=== PATIENT | female | born 2005 | race Caucasian/White ===

== ENCOUNTER 2024-06-11 05:04 | Emergency (ER) | payer SELFPAY ==
[2024-06-11 05:10] VITALS: BP 152/92; PULSE 106; RESP 18; TEMP 37.1; O2SAT 98; BMI 38.9
--- NOTE | 2024-06-11 05:19 | ED_ITS ---
Documented by User: Gris Lozano MD 06/11/24 05:32 HPI - Female Genitourinary 2 General: Chief complaint: Urogenital-Female Stated complaint: can not pee Time Seen by Provider: 06/11/24 05:14 History of Present Illness: 19-year-old female who presents emergenc y room with inability urinate. She says she awoke in the middle of the night needing to urinate and tried to urinate and could not. She said she tried to go back to sleep and woke up again later and now feels like she has been on a long road trip and needs to urinate very badly but cannot. She is having some suprapubic tenderness. No fevers. She had not had any dysuria prior to this. No nausea or vomiting. No fevers. Date of Last Menstrual Period: 05/28/24 Related Data Previous Rx's Medication Instructions Recorded cephalexin 500 mg capsule 500 mg PO TID 7 days #21 caps 06/11/24 Allergies Allergy/AdvReac Type Severity Reaction Status Date / Time No Known Allergies Allergy Verified 06/11/24 05:12 Review of Systems 2 Narrative: Constitutional symptoms: Negative except as documented in HPI. Skin symptoms: Negative except as documented in HPI. Eye symptoms: Negative except as documented in HPI. ENMT symptoms: Negative except as documented in HPI. Respiratory symptoms: Negative except as documented in HPI. Cardiovascular symptoms: Negative except as documented in HPI. Gastrointestinal symptoms: Negative except as documented in HPI. Genitourinary symptoms: Negative except as documented in HPI. Musculoskeletal symptoms: Negative except as documented in HPI. Neurologic symptoms: Negative except as documented in HPI. Psychiatric symptoms: Negative except as documented in HPI. Endocrine symptoms: Negative except as documented in HPI. [facility] ED 2 Female Reproductive History: Date of last menstrual period: 05/28/24 Physical Exam 2 Narrative: EXAM NARRATIVE: General: Alert, no acute distress. Skin: Warm, dry. Head: Normocephalic, atraumatic. Neck: Supple, trachea midline. Eye: Extraocular movements are intact. Ears, nose, mouth and throat: mucosa moist. Cardiovascular: Regular, Normal peripheral perfusion. Respiratory: Lungs are clear to auscultation, respirations are non-labored, breath sounds are equal, Symmetrical chest wall expansion. Gastrointestinal: Soft, some suprapubic tenderness, Non distended Musculoskeletal: Normal ROM, no deformity. Neurological: Alert and oriented, No focal neurological deficit observed. Psychiatric: Cooperative, appropriate mood & affect. Course 2 Vital Signs: Vital signs: Vital Signs Temperature 98.8 F 06/11/24 05:10 Pulse Rate 106 H 06/11/24 05:10 Respiratory Rate 18 06/11/24 05:10 Blood Pressure 152/92 06/11/24 05:10 Pulse Oximetry 98 06/11/24 05:10 Oxygen Delivery Me thod Room Air 06/11/24 05:10 MDM - Female Medical Decision Making Medical decision making: Differential diagnosis for patient with urinary retention including but not limited to and based on the above HPI, review of systems and physical exam:-: Urinary retention. Urinary tract infection. concerns for systemic infection, renal dysfunction Patient did finally urinate. She had a small amount of urine. Bladder scan only showed about 100 cc as well. This is being sent for urinalysis. Basic lab work was sent. Patient care transitioned to Dr. Blair at shift change Lab Data 06/11/24 05:37 06/11/24 05:37 Laboratory Results WBC 13.77 10^3/uL (3.29-11.43) H 06/11/24 05:37 RBC 4.63 10^6/uL (3.85-5.65) 06/11/24 05:37 Hgb 13.10 g/dL (11.27-16.99) 06/11/24 05:37 Hct 39.6 % (36-47) 06/11/24 05:37 MCV 85.5 fl (85-98) 06/11/24 05:37 MCH 28.3 pg (27-33) 06/11/24 05:37 MCHC 33.1 g/dL (30-55) 06/11/24 05:37 RDW 12.8 % (12.1-15.1) 06/11/24 05:37 Plt Count 258 10^3/cmm (157-399) 06/11/24 05:37 MPV 11.3 fL (7.4-10.4) H 06/11/24 05:37 Neut % (Auto) 74.4 % 06/11/24 05:37 Lymph % (Auto) 19.0 % 06/11/24 05:37 Andrew % (Auto) 5.4 % 06/11/24 05:37 Eos % (Auto) 0.6 % 06/11/24 05:37 Baso % (Auto) 0.2 % 06/11/24 05:37 Neut # (Auto) 10.25 10^3/uL (1.8-7.7) H 06/11/24 05:37 Lymph # (Auto) 2.6 10^3/uL (0.8-4.8) 06/11/24 05:37 Andrew # (Auto) 0.7 10^3/uL (0.2-0.9) 06/11/24 05:37 Eos # (Auto) 0.1 10^3/uL (0.0-0.8) 06/11/24 05:37 Baso # (Auto) 0.0 10^3/uL (0.0-0.1) 06/11/24 05:37 Nucleated RBC % (auto) 0 % 06/11/24 05:37 Nucleated RBCs # 0.0 /100WBC 06/11/24 05:37 Sodium 137 mmol/L (136-145) 06/11/24 05:37 Potassium 4.2 mmol/L (3.5-5.1) 06/11/24 05:37 Chloride 103 mmol/L (98-107) 06/11/24 05:37 Carbon Dioxide 20 mmol/L (22-29) L 06/11/24 05:37 Anion Gap 18.2 (5-19) 06/11/24 05:37 BUN 16 mg/dL (6-20) 06/11/24 05:37 Creatinine 0.9 mg/dL (0.5-0.9) 06/11/24 05:37 GFR Calculation 79.0 mL/min (90-130) L 06/11/24 05:37 Glucose 113 mg/dL (65-115) 06/11/24 05:37 Calculated Osmolality 286 mOsm/kg (285-295) 06/11/24 05:37 Calcium 8.8 mg/dL (8.5-10.5) 06/11/24 05:37 Urine Color [place] (Yellow) A 06/11/24 05:27 Urine Appearance Turbid (CLEAR) A 06/11/24 05:27 Urine pH 5.0 (5-7) 06/11/24 05:27 Ur Specific [place] 1.016 (1.005-1.030) 06/11/24 05:27 Urine Protein 2+ (Negative) A 06/11/24 05:27 Urine Glucose (UA) Negative (Normal) 06/11/24 05:27 Urine Ketones Negative (Negative) 06/11/24 05:27 Urine Blood 3+ (Negative) A 06/11/24 05:27 Urine Nitrate Positive (Negative) A 06/11/24 05:27 Urine Bilirubin Negative (Negative) 06/11/24 05:27 Urine Urobilinogen 1.0 mg/dL (Negative) 06/11/24 05:27 Ur Leukocyte Esterase 3+ (Negative) A 06/11/24 05:27 Urine RBC >100 /hpf (0-2) H 06/11/24 05:27 Urine WBC >100 /hpf (0-5) H 06/11/24 05:27 Ur Squamous Epith Cells 0-5 /hpf (0-5) 06/11/24 05:27 Amorphous Sediment Not Reportable 06/11/24 05:27 Urine Bacteria Trace /hpf (NONE) 06/11/24 05:27 Hyaline Casts 0-4 /lpf H 06/11/24 05:27 Discharge Plan Discharge Patient Disposition: Home Clinical Impression: Urinary tract infection Condition: Stable Prescriptions: New cephalexin 500 mg capsule 500 mg PO TID 7 Days Qty: 21 0RF Discharge Orders: Discharge ED (Routine); Ordered 06/11/24 Ordered By: Ashly Blair Referrals: Kaylee Cooper MD [Family Provider] - 4-7 days Discharge Diet: Advance as tolerated Discharge Activity: Resume usual activity Patient Instructions: Urinary Tract Infection in Women (ED) Coding Level of Care Code ED Catalog Library Assistant for Chg Fwd Documented by User: Ashly Blair MD 06/11/24 06:14 HPI - Female Genitourinary 2 General: Chief complaint: Urogenital-Female Stated complaint: can not pee Time Seen by Provider: 06/11/24 05:14 Related Data Previous Rx's Medication Instructions Recorded cephalexin 500 mg capsule 500 mg PO TID 7 days #21 caps 06/11/24 Allergies Allergy/AdvReac Type Severity Reaction Status Date / Time No Known Allergies Allergy Verified 06/11/24 05:12 Course 2 Vital Signs: Vital signs: Vital Signs Temperature 98.8 F 06/11/24 05:10 Pulse Rate 106 H 06/11/24 05:10 Respiratory Rate 18 06/11/24 05:10 Blood Pressure 152/92 06/11/24 05:10 Pulse Oximetry 98 06/11/24 05:10 Oxygen Delivery Me thod Room Air 06/11/24 05:10 MDM - Female Medical Decision Making Medical decision making: Differential diagnosis for patient with urinary retention including but not limited to and based on the above HPI, review of systems and physical exam:-: Urinary retention. Urinary tract infection. concerns for systemic infection, renal dysfunction Patient did finally urinate. She had a small amount of urine. Bladder scan only showed about 100 cc as well. This is being sent for urinalysis. Basic lab work was sent. Patient care transitioned to Dr. Blair at shift change Patient presents here with UTI we will prescribe her antibiotic she is stable for discharge follow-up PCP return if worsening. Lab Data 06/11/24 05:37 06/11/24 05:37 Laboratory Results WBC 13.77 10^3/uL (3.29-11.43) H 06/11/24 05:37 RBC 4.63 10^6/uL (3.85-5.65) 06/11/24 05:37 Hgb 13.10 g/dL (11.27-16.99) 06/11/24 05:37 Hct 39.6 % (36-47) 06/11/24 05:37 MCV 85.5 fl (85-98) 06/11/24 05:37 MCH 28.3 pg (27-33) 06/11/24 05:37 MCHC 33.1 g/dL (30-55) 06/11/24 05:37 RDW 12.8 % (12.1-15.1) 06/11/24 05:37 Plt Count 258 10^3/cmm (157-399) 06/11/24 05:37 MPV 11.3 fL (7.4-10.4) H 06/11/24 05:37 Neut % (Auto) 74.4 % 06/11/24 05:37 Lymph % (Auto) 19.0 % 06/11/24 05:37 Andrew % (Auto) 5.4 % 06/11/24 05:37 Eos % (Auto) 0.6 % 06/11/24 05:37 Baso % (Auto) 0.2 % 06/11/24 05:37 Neut # (Auto) 10.25 10^3/uL (1.8-7.7) H 06/11/24 05:37 Lymph # (Auto) 2.6 10^3/uL (0.8-4.8) 06/11/24 05:37 Andrew # (Auto) 0.7 10^3/uL (0.2-0.9) 06/11/24 05:37 Eos # (Auto) 0.1 10^3/uL (0.0-0.8) 06/11/24 05:37 Baso # (Auto) 0.0 10^3/uL (0.0-0.1) 06/11/24 05:37 Nucleated RBC % (auto) 0 % 06/11/24 05:37 Nucleated RBCs # 0.0 /100WBC 06/11/24 05:37 Sodium 137 mmol/L (136-145) 06/11/24 05:37 Potassium 4.2 mmol/L (3.5-5.1) 06/11/24 05:37 Chloride 103 mmol/L (98-107) 06/11/24 05:37 Carbon Dioxide 20 mmol/L (22-29) L 06/11/24 05:37 Anion Gap 18.2 (5-19) 06/11/24 05:37 BUN 16 mg/dL (6-20) 06/11/24 05:37 Creatinine 0.9 mg/dL (0.5-0.9) 06/11/24 05:37 GFR Calculation 79.0 mL/min (90-130) L 06/11/24 05:37 Glucose 113 mg/dL (65-115) 06/11/24 05:37 Calculated Osmolality 286 mOsm/kg (285-295) 06/11/24 05:37 Calcium 8.8 mg/dL (8.5-10.5) 06/11/24 05:37 Urine Color [place] (Yellow) A 06/11/24 05:27 Urine Appearance Turbid (CLEAR) A 06/11/24 05:27 Urine pH 5.0 (5-7) 06/11/24 05:27 Ur Specific [place] 1.016 (1.005-1.030) 06/11/24 05:27 Urine Protein 2+ (Negative) A 06/11/24 05:27 Urine Glucose (UA) Negative (Normal) 06/11/24 05:27 Urine Ketones Negative (Negative) 06/11/24 05:27 Urine Blood 3+ (Negative) A 06/11/24 05:27 Urine Nitrate Positive (Negative) A 06/11/24 05:27 Urine Bilirubin Negative (Negative) 06/11/24 05:27 Urine Urobilinogen 1.0 mg/dL (Negative) 06/11/24 05:27 Ur Leukocyte Esterase 3+ (Negative) A 06/11/24 05:27 Urine RBC >100 /hpf (0-2) H 06/11/24 05:27 Urine WBC >100 /hpf (0-5) H 06/11/24 05:27 Ur Squamous Epith Cells 0-5 /hpf (0-5) 06/11/24 05:27 Amorphous Sediment Not Reportable 06/11/24 05:27 Urine Bacteria Trace /hpf (NONE) 06/11/24 05:27 Hyaline Casts 0-4 /lpf H 06/11/24 05:27 No radiology studies performed this visit Discharge Plan Discharge Patient Disposition: Home Clinical Impression: Urinary tract infection Condition: Stable Prescriptions: New cephalexin 500 mg capsule 500 mg PO TID 7 Days Qty: 21 0RF Discharge Orders: Discharge ED (Routine); Ordered 06/11/24 Ordered By: Ashly Blair Referrals: Kaylee Cooper MD [Family Provider] - 4-7 days Discharge Diet: Advance as tolerated Discharge Activity: Resume usual activity Patient Instructions: Urinary Tract Infection in Women (ED) Coding Level of Care Code ED Catalog Library Assistant for Angelia Nelson
[2024-06-11 05:34] LABS: Bilirubin Urine Negative (Negative); Blood Urine 3+ (Negative); Glucose Urine UA Negative (Normal); Ketones Urine Negative (Negative); Leukocyte Esterase Urine 3+ (Negative); Nitrate Urine Positive (Negative); Protein Urine 2+ (Negative); Specific Gravity, Urine 1.016 (1.005-1.030); Urine Appearance Turbid (CLEAR)
[2024-06-11 05:39] LABS: Bacteria Urine Trace /hpf; Hyaline Casts Urine 0-4 /lpf; RBC Urine >100 /hpf (0-2); Squamous Epithelial Cell Urine 0-5 /hpf (0-5); WBC Urine >100 /hpf (0-5)
[2024-06-11 05:42] VITALS: BP 112/80; PULSE 107; O2SAT 93
[2024-06-11 05:44] LABS: Basophils % 0.2 %; Eosinophils # 0.1 10^3/uL (0.0-0.8); Eosinophils % 0.6 %; Hematocrit 39.6 % (36-47); Lymphocytes # 2.6 10^3/uL (0.8-4.8); Mean Corpuscular HGB Conc 33.1 g/dL (30-55); Mean Corpuscular Hemoglobin 28.3 pg (27-33); Mean Corpuscular Volume 85.5 fl (85-98); Mean Platelet Volume 11.3 fL (7.4-10.4); Monocytes # 0.7 10^3/uL (0.2-0.9); Monocytes % 5.4 %; Neutrophils # 10.25 10^3/uL (1.8-7.7); Neutrophils % 74.4 %; Nucleated Red Blood Cells % 0 %; Platelet Count 258 10^3/cmm (157-399); Red Blood Count 4.63 10^6/uL (3.85-5.65); Red Cell Distribution Width 12.8 % (12.1-15.1); White Blood Count 13.77 10^3/uL (3.29-11.43)
[2024-06-11 05:57] LABS: Urine Color Orange (Yellow)
[2024-06-11 05:58] LABS: Add Urine Culture? Yes
[2024-06-11 06:00] LABS: Anion Gap 18.2 (5-19); Blood Urea Nitrogen 16 mg/dL (6-20); Calcium 8.8 mg/dL (8.5-10.5); Carbon Dioxide 20 mmol/L (22-29); Chloride 103 mmol/L (98-107); Creatinine Clr Calc Pharmacy 111.3836; Glucose 113 mg/dL (65-115); Osmolality Calculated 286 mOsm/kg (285-295); Potassium 4.2 mmol/L (3.5-5.1); Sodium 137 mmol/L (136-145)
[2024-06-11] MEDS: cefTRIAXone 1,000 mg SDV 1000 MG IVP (06:16)
[2024-06-11 06:25] VITALS: BP 124/97; PULSE 108; O2SAT 95
== END 2024-06-11 06:26 | disposition home or self-care (01) ==
PROVIDERS: Emergency Medicine; Emergency Provider Emergency Medicine
DX: N39.0 Urinary tract infection, site not specified (principal)
CPT/HCPCS: 36415; 80048; 81001; 85025; 87077; 87086; 87186; 96374; 99284; J0696